=== PATIENT | male | born 1985 | race Caucasian/White ===

== ENCOUNTER 2018-11-22 07:11 | Emergency (ER) | payer BC, OTHER ==
[2018-11-22 07:25] VITALS: BP 135/83
--- NOTE | 2018-11-22 07:30 | UC ---
General HPI - HPI Summary HPI Summary: C/o R eye redness, itchiness, drainage x 24 hours. + sinus pressure last several days. Has dealt with on and off sinus headaches for a long time. Minimal cough. No fever / chills. + close contact pink eye. No GI issues. Generally healthy - History of Current Complaint Chief Complaint: UCEye Stated Complaint: EYE COMPLAINT Time Seen by Provider: 11/22/18 07:30 Hx Obtained From: Patient Pain Intensity: 3 - Allergy/Home Medications Allergies/Adverse Reactions: Allergies Allergy/AdvReac Type Severity Reaction Status Date / Time Sulfa (Sulfonamide Allergy Intermediate Unknown Verified 11/22/18 07:25 Antibiotics) Reaction Details PMH/Surg Hx/FS Hx/Imm Hx Previously Healthy: Yes - Surgical History Surgical History: Yes Surgery Procedure, Year, and Place: adenoids - Family History Known Family History: Negative: Hypertension - Social History Alcohol Use: None Substance Use Type: None Smoking Status (MU): Never Smoked Tobacco Review of Systems All Other Systems Reviewed And Are Negative: Yes Constitutional: Positive: Negative Skin: Positive: Negative Eyes: Positive: Other - see hpi ENT: Positive: Sinus Congestion, Sinus Pain/Tenderness, Other Respiratory: Positive: Other - see hpi Cardiovascular: Positive: Negative Gastrointestinal: Positive: Negative Genitourinary: Positive: Negative Motor: Positive: Negative Neurovascular: Positive: Negative Musculoskeletal: Positive: Negative Neurological: Positive: Negative Psychological: Positive: Negative Is Patient Immunocompromised?: No Physical Exam Triage Information Reviewed: Yes Appearance: Well-Appearing, Well-Nourished Vital Signs: Initial Vital Signs Temp 97.4 F 11/22/18 07:17 Pulse 65 11/22/18 07:17 Resp 18 11/22/18 07:17 BP 135/83 11/22/18 07:17 Pulse Ox 98 11/22/18 07:17 Vital Signs Reviewed: Yes Eye Exam: Other - PERRLA EOMI L eye nad R eye + conjunctivitis. Does not wear contact lenses. Lid flipped, nad. ENT Exam: Other - post pharynx a little red, uvula midline. + evidence post nasal drip. No sores / exudates. L tm + scar, good, normal light reflex. R TM - large smith white drainage in EAC. TM not completely visible, but appears ruptured, smith. trachea midline. Neck exam: Normal Neck: Positive: Supple, Nontender, No Lymphadenopathy Respiratory Exam: Normal Respiratory: Positive: Chest non-tender, Lungs clear, Normal breath sounds, No respiratory distress, No accessory muscle use Cardiovascular Exam: Normal Cardiovascular: Positive: RRR, No Murmur, Pulses Normal, Brisk Capillary Refill Abdominal Exam: Normal Abdomen Description: Positive: No Organomegaly Musculoskeletal Exam: Normal Neurological Exam: Normal - grossly nonfocal Psychological Exam: Normal - conversing easily and appropriately. NAD. Skin Exam: Normal - nondiaphoretic. No visible or reported rash Course/Dx - Course Course Of Treatment: bp 135 / 83 D/w pt, will f/u pcp < 4 weeks. Will rx R conjunctivitis and sinusitis. R eac / TM perf seems chronic a couple years or more. Is interested in medical attention. Cx (Swab) sent. Will refer to ENT. F/u PCP encouraged. ] Questions as posed answered to the best of my ability. - Diagnoses Provider Diagnosis: Sinusitis, Conjunctivitis, Perforated eardrum Discharge - Sign-Out/Discharge Documenting (check all that apply): Patient Departure All imaging exams completed and their final reports reviewed: No Studies - Discharge Plan Condition: Stable Disposition: HOME Prescriptions: Amoxicillin/Clavulanate TAB* [Augmentin TAB 875*] 875 mg PO BID #20 tab Moxifloxacin 0.5% OPHTH(NF) [Vigamox 0.5% OPHTH(NF)] 2 drop RIGHT EYE BID 5 Days #2 bottle Patient Education Materials: Sinusitis (ED), Otitis Externa (ED), Ruptured Eardrum (ED), Conjunctivitis (ED) Forms: *Work Release Referrals: [facility] [place] [facility] REFERRAL [Outside] No Primary Care Phys,NOPCP [Primary Care Provider] - Additional Instructions: Please follow up with your primary care physician, in the next one month. Check blood pressure in the next one month. Today 135/83. Please follow up with ENT doctor, in the next couple weeks if possible. Seek medical attention for worse or new problems. - Billing Disposition and Condition Condition: STABLE Disposition: Home
== END 2018-11-22 08:00 | disposition home or self-care (01) ==
LOC: UCEAST 07:11
DX: H10.31 Unspecified acute conjunctivitis, right eye (principal); J32.9 Chronic sinusitis, unspecified; H72.91 Unspecified perforation of tympanic membrane, right ear; Z88.2 Allergy status to sulfonamides
CPT/HCPCS: 87070; 87077; 87186; 87205; 87640; 87641; 99212; G0463